=== PATIENT | female | born 1965 | race Caucasian/White ===

== ENCOUNTER 2022-03-06 13:36 | Inpatient (IN) ==
[2022-03-06] MEDS ORDERED: Melatonin 3 MG TABLET PO PRN (17:00)
[2022-03-06] MEDS ORDERED: 0.9 % Sodium Chloride 1,000 ML IVC SCH (17:00)
[2022-03-06] MEDS ORDERED: Nicotine 2 MG GUM BC PRN (17:06)
[2022-03-06] MEDS: niCARdipine 20 MG/200 ML MLS IVC SCH (17:16)
[2022-03-06] MEDS: Nicotine 14 MG PATCH.TD24 TD SCH (17:17)
[2022-03-06] MEDS: *HR* Heparin 5,000 UNIT/ML VIAL SQ SCH (17:17)
[2022-03-06 18:19] LABS: Hemoglobin 13.3 g/dL (11.5-15.4); Mean Corpuscular HGB Conc 33.3 g/dL (31.6-35.5); Mean Corpuscular Hemoglobin 30.9 pg (28.0-33.3); Mean Platelet Volume 9.2 fL (9.4-12.4); Platelet Count 219 K/mcL (140-400); Red Cell Distribution Width 15.8 % (11.5-14.5); White Blood Count 13.3 K/mcL (4.3-11.1)
[2022-03-06 18:27] LABS: INR 1.1; Prothrombin Time 12.6 Seconds (9.4-12.1)
[2022-03-06 18:37] LABS: Albumin 4.1 g/dL (3.5-5.7); Albumin/Globulin Ratio 1.1 (1.1-2.2); Bilirubin,Indirect 0.5 mg/dL (0.0-1.0); Bilirubin,Total 0.5 mg/dL (0.3-1.0); Calcium 9.6 mg/dL (8.6-10.3); Globulin 3.7 g/dL (2.4-3.5); Magnesium 1.7 mg/dL (1.6-2.6); Phosphorous 2.8 mg/dL (2.7-4.5); Potassium 3.8 mEq/L (3.5-5.1); Total Protein 7.8 g/dL (6.4-8.9)
[2022-03-06] MEDS: Ondansetron 4 MG/2 ML VIAL IVP PRN (19:27)
[2022-03-06] MEDS: Acetaminophen 325 MG TABLET PO PRN (19:40)
[2022-03-07] MEDS: Acetaminophen 325 MG TABLET PO PRN ×2 (04:40→15:58)
[2022-03-07] MEDS: Ondansetron 4 MG/2 ML VIAL IVP PRN ×4 (04:41→19:55)
[2022-03-07] MEDS: *HR* Heparin 5,000 UNIT/ML VIAL SQ SCH ×2 (04:49→17:46)
[2022-03-07] MEDS: niCARdipine 20 MG/200 ML MLS IVC SCH ×8 (06:21→23:55)
[2022-03-07 06:45] LABS: Chol/HDL Ratio 16.3 (0-4.9); Cholesterol 374 mg/dL (< 200); HDL Cholesterol 23 mg/dL (40-59); Triglycerides 701 mg/dL (< 150)
[2022-03-07 07:28] LABS: Estimated Average Glucose 111 mg/dl; Hemoglobin A1C 5.5 %
[2022-03-07] MEDS: Nicotine 14 MG PATCH.TD24 TD SCH (08:02)
[2022-03-07 08:32] LABS: BUN/Creatinine Ratio 8 (6-26); Blood Urea Nitrogen 16 mg/dL (6-20); Calcium 9.1 mg/dL (8.6-10.3); Carbon Dioxide 23 mEq/L (23-29); Chloride 104 mEq/L (98-107); Glucose 105 mg/dL (70-105); Osmolality,Calculated 284 (280-300); Potassium 3.7 mEq/L (3.5-5.1); Sodium 136 mEq/L (136-145); eGFR For African Americans 32 (> 60); eGFR For Non-African Americans 26 (> 60)
[2022-03-07 10:34] LABS: Bacteria,Urine Few per hpf (None-Few); Bilirubin,Urine Negative (Negative); Blood,Urine Trace (Negative); Clarity,Urine Clear (Clear); Color,Urine Light-Yellow (Yellow); Glucose,Urine (UA) Normal (Normal); Ketones,Urine Negative (Negative); Leukocyte Esterase,Urine Large (Negative); Mucus,Urine Few per lpf (None-Few); Nitrite,Urine Negative (Negative); PH,Urine 6.5 pH Units (5.0-8.0); Protein,Urine 100 mg/dL (Neg-Trace); Specific Gravity,Urine 1.016 (1.010-1.025); Squamous Epithelial Cell,Urine Moderate per hpf (None-Few); Urobilinogen,Urine Normal (Normal); WBC,Urine 50-100 per hpf (0-3)
[2022-03-07] MEDS ORDERED: amLODIPine 5 MG TABLET PO SCH (11:30)
[2022-03-07 11:38] LABS: Protein/Creatinine Ratio,Urine 0.86 mg/mg (0.00-0.20)
[2022-03-07] MEDS ORDERED: *HR* OxyCODONE/APAP 5/325 TABLET PO ONE (19:06)
[2022-03-08] MEDS: niCARdipine 20 MG/200 ML MLS IVC SCH ×2 (03:30→21:37)
[2022-03-08 06:20] LABS: Potassium 3.6 mEq/L (3.5-5.1)
[2022-03-08] MEDS: *HR* Heparin 5,000 UNIT/ML VIAL SQ SCH ×2 (06:30→17:18)
[2022-03-08] MEDS: Nicotine 14 MG PATCH.TD24 TD SCH (07:46)
[2022-03-08] MEDS: NIFEdipine XL (24 HR) 60 MG TAB.ER.24 PO SCH (10:28)
[2022-03-08] MEDS: Acetaminophen 325 MG TABLET PO PRN ×2 (13:59→19:43)
[2022-03-09 03:44] LABS: Basophils # 0.1 K/mcL (0.0-0.2); Basophils % 0.7 %; Eosinophils % 0.4 %; Hematocrit 34.1 % (35.3-44.9); Immature Granulocytes % 0.5 % (0-4); Lymphocytes # 2.1 K/mcL (0.6-4.6); Mean Corpuscular HGB Conc 32.3 g/dL (31.6-35.5); Mean Corpuscular Hemoglobin 30.3 pg (28.0-33.3); Mean Corpuscular Volume 93.9 fL (83.0-100.0); Mean Platelet Volume 9.7 fL (9.4-12.4); Monocytes # 0.4 K/mcL (0.0-1.3); Monocytes % 4.3 %; Neutrophils # 5.8 K/mcL (1.6-8.9); Platelet Count 212 K/mcL (140-400); Red Blood Count 3.63 M/mcL (3.82-4.97); Red Cell Distribution Width 15.6 % (11.5-14.5); Segmented Neutrophils % 69.1 %; White Blood Count 8.4 K/mcL (4.3-11.1)
[2022-03-09 04:06] LABS: Calcium 8.9 mg/dL (8.6-10.3); Potassium 3.3 mEq/L (3.5-5.1)
[2022-03-09] MEDS: Acetaminophen 325 MG TABLET PO PRN (06:23)
[2022-03-09] MEDS: *HR* Heparin 5,000 UNIT/ML VIAL SQ SCH (06:23)
[2022-03-09] MEDS: Nicotine 14 MG PATCH.TD24 TD SCH (07:30)
[2022-03-09] MEDS: NIFEdipine XL (24 HR) 60 MG TAB.ER.24 PO SCH (07:30)
[2022-03-09 10:07] VITALS: BP 113/75; PULSE 61; TEMP 98.4
[2022-03-09 10:12] VITALS: O2SAT 94
== END 2022-03-09 14:13 | disposition home or self-care (01) | DRG 199 ==
LOC: 2NENU → SUATTDRO 17:15 → 2NNU 18:55 → 2ANU 03-08 21:35
PROVIDERS: ADMIT Internal Medicine; ATTEND Internal Medicine